=== PATIENT | female | born 1985 | race Caucasian/White ===

== ENCOUNTER → 2019-12-31 17:28 | Outpatient (CLI) | payer OTHER, SELFPAY ==
[2019-12-31 21:48] LABS: Amphetamine/Metha Screen,Urine Negative ng/ml (<1000)
[2019-12-31 21:49] LABS: Barbiturates Screen,Urine Negative ng/ml (<200)
[2019-12-31 21:51] LABS: Benzodiazepines Screen,Urine Negative ng/ml (<200); Cannabinoid Screen,Urine Negative ng/ml (<50)
[2019-12-31 21:52] LABS: Cocaine Screen,Urine Negative ng/ml (<300)
[2019-12-31 21:53] LABS: Methadone Screen,Urine Negative ng/ml (<300); Opiate Screen,Urine Negative ng/ml (<300)
[2019-12-31 21:54] LABS: Phencyclidine Screen,Urine Negative ng/ml (<25)
== END ==
PROVIDERS: Visit Provider Physician Assistant
DX: Z79.899 Other long term (current) drug therapy (principal)
CPT/HCPCS: 80305

== ENCOUNTER → 2020-09-01 07:54 | Outpatient (CLI) | payer OTHER, SELFPAY ==
--- NOTE | 2020-09-01 07:55 | MR_ITS ---
PROCEDURE: MR CERVICAL SPINE WO CON CLINICAL INDICATION: neck pain Pt c/o neck pain going down rt arm with numbness and tingling to rt fingers. Pt states hx of cervical surgery in 2012 she had a fuson and in 2014 she had a disc replacement. COMPARISON: CT CSWO CT CERVICAL SPINE W/O CONT from 07/30/2016 TECHNIQUE: Standard multiplanar multiecho sequences are performed without contrast. 3-D MIP and myelographic images are also rendered and reviewed FINDINGS: There is normal alignment. The craniocervical junction has an unremarkable appearance. C2-C3: Unremarkable. C3-C4: There is minimal prominence of the posterior longitudinal ligament with minimal central disc osteophyte complex without impingement. C4-C5: Degenerative disc disease with bulging disc. There is canal stenosis at this level at 9 mm and ridging of the posterior endplates and minimal flattening of the cord anteriorly.. There is mild bilateral lateral recess and foraminal narrowing. Type 1 endplate changes inferior endplate of C4. C5-C6 and C6-C7: Prior anterior cervical disc fusion with significant artifact especially on the axial images. There is narrowing of the canal at C6-C7 without impingement or flattening. C7-T1: Unremarkable. IMPRESSION: 1. Postsurgical changes C5-C6 and C6-C7 with canal stenosis at C6. 2. Degenerative disc disease C4-C5 with canal stenosis with mild ridging of the posterior endplates and minimal bulging disc with canal stenosis with minimal flattening of the cord anteriorly 3. No extruded herniated disc evident. 4. Minimal prominence posterior longitudinal ligament with minimal central disc osteophyte complex at C3-C4 without impingement Dictated by: Lobito Jacobs MD 09/02/2020 10:12 Lobito Jacobs MD in [place] 09/02/2020 10:12
== END ==
PROVIDERS: PCP Emergency Medicine; Visit Provider Emergency Medicine
DX: M54.2 Cervicalgia (principal)
CPT/HCPCS: 72141; 76376

== ENCOUNTER → 2021-04-25 06:00 | Outpatient (CLI) | payer OTHER, SELFPAY ==
[2021-04-26 09:38] LABS: Amphetamine/Metha Screen,Urine Negative ng/ml (<1000); Barbiturates Screen,Urine Negative ng/ml (<200)
[2021-04-26 09:39] LABS: Benzodiazepines Screen,Urine Negative ng/ml (<200); Cannabinoid Screen,Urine Negative ng/ml (<50)
[2021-04-26 09:40] LABS: Cocaine Screen,Urine Negative ng/ml (<300)
[2021-04-26 09:41] LABS: Methadone Screen,Urine Negative ng/ml (<300); Opiate Screen,Urine Negative ng/ml (<300)
[2021-04-26 09:42] LABS: Phencyclidine Screen,Urine Negative ng/ml (<25)
== END ==
PROVIDERS: Visit Provider Emergency Medicine
DX: Z79.899 Other long term (current) drug therapy (principal)
CPT/HCPCS: 80305

== ENCOUNTER → 2021-08-09 12:53 | Outpatient (CLI) | payer OTHER, SELFPAY ==
[2021-08-09 14:11] LABS: Barbiturates Screen,Urine Negative ng/ml (<200); Benzodiazepines Screen,Urine Negative ng/ml (<200)
[2021-08-09 14:12] LABS: Amphetamine/Metha Screen,Urine Negative ng/ml (<1000)
[2021-08-09 14:13] LABS: Cannabinoid Screen,Urine Negative ng/ml (<50); Methadone Screen,Urine Negative ng/ml (<300)
[2021-08-09 14:14] LABS: Cocaine Screen,Urine Negative ng/ml (<300)
[2021-08-09 14:15] LABS: Opiate Screen,Urine Negative ng/ml (<300); Phencyclidine Screen,Urine Negative ng/ml (<25)
== END ==
PROVIDERS: Visit Provider Emergency Medicine
DX: F41.9 Anxiety disorder, unspecified (principal); M54.9 Dorsalgia, unspecified
CPT/HCPCS: 80305

== ENCOUNTER → 2021-09-20 14:40 | Outpatient (CLI) | payer OTHER, SELFPAY ==
--- NOTE | 2021-09-20 14:40 | MR_ITS ---
PROCEDURE: MR LUMBAR SPINE WO CON CLINICAL INDICATION: back pain COMPARISON: No exams were available for comparison TECHNIQUE: Standard multiplanar multiecho sequences are performed without contrast. 3-D MIP and myelographic images are also rendered and reviewed FINDINGS: Normal alignment. No acute fracture or dislocation. No abnormal bone marrow signal intensity. No extruded herniated disc. Mild facet hypertrophic change at L4-5 with mild bilateral lateral recess and foraminal narrowing. Mild facet hypertrophic change L5-S1 with mild bilateral foraminal narrowing. The spinal cord ends at the L2 level. IMPRESSION: 1. No acute fracture. 2. No extruded herniated disc. 3. Mild facet and ligamentum hypertrophic change at L4-5 with mild bilateral lateral recess and foraminal narrowing and mild facet hypertrophic changes at L5-S1 with mild bilateral foraminal narrowing. Dictated by: Lobito Jacobs MD 09/20/2021 19:55 Lobito Jacobs MD in [place] 09/20/2021 19:55
== END ==
PROVIDERS: PCP Emergency Medicine; Visit Provider Emergency Medicine
DX: M54.50 Low back pain, unspecified (principal)
CPT/HCPCS: 72148; 76376

== ENCOUNTER → 2021-10-05 13:58 | Outpatient (CLI) | payer OTHER, SELFPAY ==
[2021-10-05 15:25] LABS: Amphetamine/Metha Screen,Urine Negative ng/ml (<1000)
[2021-10-05 15:26] LABS: Barbiturates Screen,Urine Negative ng/ml (<200); Benzodiazepines Screen,Urine Positive ng/ml (<200)
[2021-10-05 15:27] LABS: Cannabinoid Screen,Urine Negative ng/ml (<50)
[2021-10-05 15:28] LABS: Cocaine Screen,Urine Negative ng/ml (<300); Methadone Screen,Urine Negative ng/ml (<300)
[2021-10-05 15:29] LABS: Opiate Screen,Urine Positive ng/ml (<300); Phencyclidine Screen,Urine Negative ng/ml (<25)
== END ==
PROVIDERS: Visit Provider Emergency Medicine
DX: M54.9 Dorsalgia, unspecified (principal)
CPT/HCPCS: 80305

== ENCOUNTER → 2021-12-02 14:37 | Outpatient (CLI) | payer OTHER, SELFPAY ==
[2021-12-02 16:51] LABS: Amphetamine/Metha Screen,Urine Negative ng/ml (<1000); Barbiturates Screen,Urine Negative ng/ml (<200)
[2021-12-02 16:53] LABS: Benzodiazepines Screen,Urine Positive ng/ml (<200); Cannabinoid Screen,Urine Negative ng/ml (<50)
[2021-12-02 16:54] LABS: Cocaine Screen,Urine Negative ng/ml (<300)
[2021-12-02 16:55] LABS: Methadone Screen,Urine Negative ng/ml (<300); Opiate Screen,Urine Positive ng/ml (<300)
[2021-12-02 16:56] LABS: Phencyclidine Screen,Urine Negative ng/ml (<25)
== END ==
PROVIDERS: Visit Provider Emergency Medicine
DX: Z79.899 Other long term (current) drug therapy (principal)
CPT/HCPCS: 80305

== ENCOUNTER → 2022-01-27 15:08 | Outpatient (CLI) | payer OTHER, SELFPAY ==
[2022-01-27 15:43] LABS: Amphetamine/Metha Screen,Urine Negative ng/ml (<1000)
[2022-01-27 15:44] LABS: Barbiturates Screen,Urine Negative ng/ml (<200); Benzodiazepines Screen,Urine Positive ng/ml (<200)
[2022-01-27 15:45] LABS: Cannabinoid Screen,Urine Negative ng/ml (<50)
[2022-01-27 15:46] LABS: Cocaine Screen,Urine Negative ng/ml (<300)
[2022-01-27 15:47] LABS: Methadone Screen,Urine Negative ng/ml (<300); Opiate Screen,Urine Positive ng/ml (<300)
[2022-01-27 15:51] LABS: Phencyclidine Screen,Urine Negative ng/ml (<25)
== END ==
PROVIDERS: Visit Provider Emergency Medicine
DX: Z79.899 Other long term (current) drug therapy (principal)
CPT/HCPCS: 80305

== ENCOUNTER → 2022-04-07 16:03 | Outpatient (CLI) | payer OTHER, SELFPAY ==
[2022-04-07 13:29] LABS: Amphetamine/Metha Screen,Urine Negative ng/ml (<1000); Barbiturates Screen,Urine Negative ng/ml (<200)
[2022-04-07 13:30] LABS: Benzodiazepines Screen,Urine Positive ng/ml (<200)
[2022-04-07 13:31] LABS: Cannabinoid Screen,Urine Negative ng/ml (<50); Cocaine Screen,Urine Negative ng/ml (<300)
[2022-04-07 13:32] LABS: Methadone Screen,Urine Negative ng/ml (<300); Opiate Screen,Urine Positive ng/ml (<300)
[2022-04-07 13:33] LABS: Phencyclidine Screen,Urine Negative ng/ml (<25)
== END ==
PROVIDERS: Visit Provider Emergency Medicine
DX: G89.29 Other chronic pain (principal)
CPT/HCPCS: 80305

== ENCOUNTER → 2022-08-04 14:23 | Outpatient (CLI) | payer OTHER, SELFPAY ==
[2022-08-04 15:26] LABS: Amphetamine/Metha Screen,Urine Negative ng/ml (<1000)
[2022-08-04 15:27] LABS: Barbiturates Screen,Urine Negative ng/ml (<200)
[2022-08-04 15:28] LABS: Benzodiazepines Screen,Urine Positive ng/ml (<200); Cannabinoid Screen,Urine Negative ng/ml (<50)
[2022-08-04 15:30] LABS: Cocaine Screen,Urine Negative ng/ml (<300); Methadone Screen,Urine Negative ng/ml (<300)
[2022-08-04 15:31] LABS: Opiate Screen,Urine Positive ng/ml (<300)
[2022-08-04 15:32] LABS: Phencyclidine Screen,Urine Negative ng/ml (<25)
== END ==
PROVIDERS: PCP Emergency Medicine; Visit Provider Emergency Medicine
DX: Z79.899 Other long term (current) drug therapy (principal)
CPT/HCPCS: 80305

== ENCOUNTER → 2022-10-02 10:40 | Outpatient (CLI) | payer OTHER, SELFPAY ==
[2022-10-02 19:37] LABS: Amphetamine/Metha Screen,Urine Negative ng/ml (<1000); Barbiturates Screen,Urine Negative ng/ml (<200)
[2022-10-02 19:38] LABS: Benzodiazepines Screen,Urine Positive ng/ml (<200)
[2022-10-02 19:39] LABS: Cannabinoid Screen,Urine Negative ng/ml (<50); Cocaine Screen,Urine Negative ng/ml (<300)
[2022-10-02 19:40] LABS: Methadone Screen,Urine Negative ng/ml (<300); Opiate Screen,Urine Positive ng/ml (<300)
[2022-10-02 19:41] LABS: Phencyclidine Screen,Urine Negative ng/ml (<25)
== END ==
PROVIDERS: PCP Emergency Medicine; Visit Provider Emergency Medicine
DX: Z79.899 Other long term (current) drug therapy (principal)
CPT/HCPCS: 80305

== ENCOUNTER 2022-10-10 18:50 | Emergency (ER) | payer OTHER, SELFPAY ==
--- NOTE | 2022-10-10 19:13 | ECG_ITS ---
APPROVED REPORT Exam: Resting ECG HR:125 bpm ECG Measurements Heart Rate 125 AXES [place] 104 P 80 QRSd 65 QRS 88 QT 336 T 16 QTc 410 Conclusion SINUS TACHYCARDIA WITH SHORT [place] INTERVAL NONSPECIFIC ST & T-WAVE ABNORMALITY ABNORMAL RHYTHM ECG UNCONFIRMED REPORT Electronically signed by : Terrell Beltran MD 10/11/2022 13:14:35
[2022-10-10 19:25] LABS: Coronavirus 19, PCR Not Detected (NotDetected); Influenza A, PCR Not Detected (NotDetected); Influenza B, PCR Not Detected (NotDetected)
[2022-10-10 19:28] LABS: Basophils # 0.1 K/mm3 (0-0.2); Basophils % 1.2 % (0.1-2.0); Eosinophils # 0.1 K/mm3 (0.0-0.4); Eosinophils % 0.9 % (0.1-12.0); Hematocrit 51.4 % (37.0-47.0); Hemoglobin 16.9 g/dL (12.2-16.2); Lymphocytes # 1.3 K/mm3 (0.7-4.5); Lymphocytes % 12.7 % (10-50); Mean Corpuscular Volume 97.2 fl (81-99); Mean Platelet Volume 8.6 fl (7.4-10.4); Monocytes # 0.7 K/mm3 (0.1-1.0); Monocytes % 6.1 % (1.7-9.3); Neutrophils # 8.4 K/mm3 (1.8-7.8); Neutrophils % 79.2 % (37.0-80.0); Platelet Count 218 K/mm3 (142-424); Red Blood Count 5.29 M/mm3 (4.20-5.40); Red Cell Distribution Width 13.5 % (11.5-17.5); White Blood Count 10.6 K/mm3 (4.8-10.8)
[2022-10-10 19:33] LABS: Chloride 104 mmol/L (98-107); Potassium 3.5 mmoL/L (3.5-5.1); Sodium 141 mmol/L (136-145)
[2022-10-10 19:35] LABS: Alanine Aminotransferase 35 U/L (12-78); Alkaline Phosphatase 68 U/L (38-126); Aspartate Amino Transferase 38 U/L (14-36); Bilirubin,Total 0.3 mg/dl (0.2-1.3); Blood Urea Nitrogen 16 mg/dl (7-17); Estimated Glomerular Filt Rate 70 ml/min (>60); GFR (African American) 84 ML/MIN (>60)
[2022-10-10 19:36] LABS: Albumin Level 5.2 g/dl (3.5-5.0); Albumin/Globulin Ratio 1.6 (1.1-1.8); Anion Gap 23.5 mEq/L (5-15); Calcium 10.3 mg/dl (8.4-10.2); Carbon Dioxide 17 mmol/L (22.0-30.0); Globulin 3.3 g/dL (1.3-3.2); Glucose 157 mg/dl (74-100); Lipase 20 U/L (23-300); Total Protein,Serum 8.5 g/dl (6.3-8.2)
[2022-10-10 19:42] LABS: HCG Qualitative, Serum Negative (Negative)
--- NOTE | 2022-10-10 19:57 | HMH.EDGENADL ---
Discharge Plan Disposition Patient Disposition: Left Against Medical Advice Condition: Fair Chief Complaint: Nausea/Vomiting/Diarrhea Prescriptions Prescriptions: No Action lidocaine 5 % adhesive patch,medicated 1 patch TOPICAL DAILY Qty: 30 1RF Rx Instructions: leave on most painful area for up to 12 hrs diclofenac sodium 1 % gel 2 g TOPICAL QID Qty: 100 0RF Rx Instructions: apply to single elbow, wrist or hand; for hand includes palm/fingers/back of hand vilazodone [Viibryd] 10 mg tablet 10 mg PO DAILY Qty: 30 1RF Rx Instructions: must administer with a meal/food alprazolam 0.5 mg tablet 0.5 mg PO QID PRN (Reason: anxiety) Qty: 120 1RF Hold Instructions: Doctor's Order gabapentin 600 mg tablet 600 mg PO TID Qty: 90 1RF hydrocodone-acetaminophen 10-325 mg tablet 1 tab PO TID Qty: 90 0RF Referrals Follow up/Referrals: Moses Rico MD [Primary Care Provider] - See instructions Clinical Impressions Clinical Impression: Abdominal pain, Nausea, vomiting and diarrhea Instructions Patient Instructions: DI for Nausea -- Adult Discharge ED Provider: Lina Flores General Adult HPI General Chief complaint: Nausea/Vomiting/Diarrhea Stated complaint: back pain, SOA, VA Time Seen by Provider: 10/10/22 19:21 History of Present Illness HPI narrative: 37-year-old female presenting to the emergency department with abdominal pain, nausea, vomiting, diarrhea, cough, chills. Symptoms started 2 to 3 days ago. Described as cramping upper abdominal pain. When she tries to eat, pain is worse. She has had body aches, fevers, chills, generalized malaise. She has a cough and congestion. Occasional burning pain in her chest when she coughs. No chest pain at rest. Told triage nurse that the pain radiated toward her back. Denies this to me. No numbness, weakness, tingling in her legs. Nothing that this is ever happened before. Related Data Previous Rx's Medication Instructions Recorded diclofenac sodium 1 % topical gel 2 g topical QID #100 grams 08/09/21 lidocaine 5 % topical patch 1 patch topical DAILY #30 ea 08/09/21 alprazolam 0.5 mg tablet 0.5 mg PO QID PRN anxiety #120 tabs 10/02/22 gabapentin 600 mg tablet 600 mg PO TID #90 tabs 10/02/22 hydrocodone 10 mg-acetaminophen 1 tab PO TID #90 tabs 10/02/22 325 mg tablet vilazodone 10 mg tablet (Viibryd) 10 mg PO DAILY #30 tabs 10/02/22 Allergies Allergy/AdvReac Type Severity Reaction Status Date / Time No Known Allergies Allergy Verified 10/02/22 10:41 [facility] Medical History Cervical neuropathy Cervical neuropathy Cervical spondylosis Low back pain Social History Smoking Status: Current every day smoker tobacco type: cigarettes packs per day: 1 alcohol intake: never substance use type: former substance user and heroin current occupational status: unemployed Travel in the last 8 weeks: None ROS Obtained: Yes All systems reviewed & no additional complaints except as documented Constitutional Constitutional: Reports anorexia, Reports body ache and Denies fever(s) ENT Ears, Nose, Mouth, and Throat: Denies dizziness, Reports nasal congestion and Denies sore throat Cardiovascular Cardiovascular: Reports chest pain (burning with cough) and Denies palpitations Respiratory Respiratory: Reports chest congestion, Reports cough and Denies wheezing Gastrointestinal Gastrointestingal: Reports abdominal pain, diarrhea, nausea and vomiting Genitourinary Female Genitourinary: Denies dysuria and Denies hematuria Musculoskeletal Musculoskeletal: Denies back pain, Denies muscle cramps, Reports myalgias, Denies numbness and Denies tingling Integumentary/Breasts Skin/Breast: Denies redness and Denies rash Neurologic Neurologic: Denies dizziness, Denies numbness and Denies tingling Endocrine Endocrine
[2022-10-10 19:58] VITALS: BP 145/68; PULSE 68; RESP 18; TEMP 36.8; O2SAT 98; BMI 27.3
[2022-10-10 20:02] VITALS: BP 148/68; PULSE 72; RESP 16; TEMP 36.6; O2SAT 99
--- NOTE | 2022-10-10 20:04 | PC.NURSE ---
Patient left hospital ama. Patient was screaming in her room about how she has not had anything done to help her. We advised patient that we were waiting for lab results to report and her flu test to come back. Patient states that she was only here for pain and we haven't taken care of her pain at all.
== END 2022-10-10 20:04 | disposition left against medical advice (07) ==
PROVIDERS: Emergency Provider Emergency Medicine; PCP Emergency Medicine
DX: M54.50 Low back pain, unspecified (principal); R10.10 Upper abdominal pain, unspecified; R11.2 Nausea with vomiting, unspecified; R19.7 Diarrhea, unspecified; R53.81 Other malaise; Z20.822 Contact with and (suspected) exposure to COVID-19; M79.10 Myalgia, unspecified site; R50.9 Fever, unspecified; R06.02 Shortness of breath; R05.9 Cough, unspecified; M47.892 Other spondylosis, cervical region; F41.9 Anxiety disorder, unspecified; F17.210 Nicotine dependence, cigarettes, uncomplicated
CPT/HCPCS: 80053; 83690; 84703; 85025; 93005; 99284; C9803; U0003; U0005

== ENCOUNTER → 2022-11-29 10:00 | Outpatient (CLI) | payer OTHER, SELFPAY ==
[2022-11-29 15:43] LABS: Amphetamine/Metha Screen,Urine Negative ng/ml (<1000)
[2022-11-29 15:44] LABS: Benzodiazepines Screen,Urine Positive ng/ml (<200); Cannabinoid Screen,Urine Negative ng/ml (<50)
[2022-11-29 15:45] LABS: Barbiturates Screen,Urine Negative ng/ml (<200)
[2022-11-29 15:46] LABS: Cocaine Screen,Urine Negative ng/ml (<300); Methadone Screen,Urine Negative ng/ml (<300)
[2022-11-29 15:47] LABS: Opiate Screen,Urine Positive ng/ml (<300)
[2022-11-29 16:23] LABS: Phencyclidine Screen,Urine Negative ng/ml (<25)
== END ==
PROVIDERS: PCP Emergency Medicine; Visit Provider Emergency Medicine
DX: Z79.899 Other long term (current) drug therapy (principal)
CPT/HCPCS: 80305

== ENCOUNTER 2023-03-03 22:07 | Emergency (ER) | payer OTHER, SELFPAY ==
[2023-03-03 22:08] VITALS: BP 117/96; PULSE 95; RESP 16; TEMP 36.4; O2SAT 98; BMI 27.3
[2023-03-03 22:28] LABS: Basophils # 0.1 K/mm3 (0-0.2); Basophils % 0.5 % (0.1-2.0); Eosinophils # 0.4 K/mm3 (0.0-0.4); Eosinophils % 3.6 % (0.1-12.0); Hematocrit 39.5 % (37.0-47.0); Hemoglobin 12.9 g/dL (12.2-16.2); Lymphocytes # 5.8 K/mm3 (0.7-4.5); Lymphocytes % 54.4 % (10-50); Mean Corpuscular HGB Conc 32.6 g/dL (31.8-35.4); Mean Corpuscular Hemoglobin 31.6 pg (27.0-31.2); Mean Corpuscular Volume 96.8 fl (81-99); Mean Platelet Volume 7.8 fl (7.4-10.4); Monocytes # 0.6 K/mm3 (0.1-1.0); Monocytes % 5.1 % (1.7-9.3); Neutrophils # 3.9 K/mm3 (1.8-7.8); Neutrophils % 36.3 % (37.0-80.0); Platelet Count 276 K/mm3 (142-424); Red Blood Count 4.08 M/mm3 (4.20-5.40); Red Cell Distribution Width 12.9 % (11.5-17.5); White Blood Count 10.7 K/mm3 (4.8-10.8)
[2023-03-03 22:29] LABS: MANUAL DIFFERENTIAL MANUAL DIFFERENTIAL (MANUAL DIFF)
[2023-03-03 22:30] LABS: Chloride 105 mmol/L (98-107); Potassium 3.5 mmoL/L (3.5-5.1); Sodium 137 mmol/L (136-145)
[2023-03-03 22:32] LABS: Alanine Aminotransferase 60 U/L (12-78); Alkaline Phosphatase 62 U/L (38-126); Aspartate Amino Transferase 105 U/L (14-36); Bilirubin,Total 0.4 mg/dl (0.2-1.3); Blood Urea Nitrogen 14 mg/dl (7-17); Creatinine Clearance Estimated 78 mL/min (50-200); Estimated Glomerular Filt Rate 62 ml/min (>60); GFR (African American) 75 ML/MIN (>60)
[2023-03-03 22:33] LABS: Albumin/Globulin Ratio 1.7 (1.1-1.8); Anion Gap 10.5 mEq/L (5-15); Calcium 8.2 mg/dl (8.4-10.2); Carbon Dioxide 25 mmol/L (22.0-30.0); Globulin 2.3 g/dL (1.3-3.2); Glucose 172 mg/dl (74-100); Salicylate < 1.0 mg/dL (2.0-20.0); Total Protein,Serum 6.3 g/dl (6.3-8.2)
[2023-03-03 22:34] LABS: Acetaminophen < 10 ug/ml (10-30)
[2023-03-03 22:36] LABS: Eosinophils % 4 % (0-3); Lymphocytes % 49 % (10-50); Monocytes % 4 % (2-9); Neutrophils % 43 % (42-76); Total Cells Counted 100
[2023-03-03 22:37] LABS: Platelet Estimate Normal; RBC Morphology Normal
[2023-03-03 22:44] LABS: Barbiturates Screen,Urine Negative ng/ml (<200); Benzodiazepines Screen,Urine Positive ng/ml (<200)
[2023-03-03 22:45] LABS: Amphetamine/Metha Screen,Urine Negative ng/ml (<1000); Cannabinoid Screen,Urine Positive ng/ml (<50)
[2023-03-03 22:46] LABS: Cocaine Screen,Urine Negative ng/ml (<300)
[2023-03-03 22:47] LABS: Methadone Screen,Urine Negative ng/ml (<300); Opiate Screen,Urine Positive ng/ml (<300)
[2023-03-03 22:48] LABS: Phencyclidine Screen,Urine Negative ng/ml (<25)
--- NOTE | 2023-03-03 23:14 | HMH.EDOD ---
Discharge Plan Disposition Patient Disposition: Home, Self-Care Chief Complaint: Overdose Prescriptions Prescriptions: No Action alprazolam 0.5 mg tablet 0.5 mg PO QID PRN (Reason: anxiety) Qty: 120 1RF Hold Instructions: Doctor's Order gabapentin 600 mg tablet 600 mg PO TID hydrocodone-acetaminophen 10-325 mg tablet 1 tab PO TID vilazodone [Viibryd] 10 mg tablet 10 mg PO DAILY Rx Instructions: must administer with a meal/food Referrals Follow up/Referrals: Moses Rico MD [Primary Care Provider] - See instructions Clinical Impressions Clinical Impression: Poisoning by opiate or related narcotic Instructions Patient Instructions: Dos and Don'ts for Prescription Medications Discharge ED Provider: Trisha (ED)[facility] Overdose HPI General Chief Complaint: Overdose Stated Complaint: overdose Time Seen by Provider: 03/03/23 23:14 Mode of Arrival: EMS Source of Information: Patient, EMS and Medical Record Limitations: No Limitations Description of Symptoms (Recalled from ER Triage Doc. by RN): PT arrived via EMS. Per EMS patient was found unresponsive with snoring respirations. Patient was given 4mg of narcan and sternal rubbed. At that time patient woke up and was able to respond appropriately. Patients vital signs were within normal range en route. Pt states did not take any illicit drugs. States that she took her prescription medication as prescribed by her pcp like she typically does. States that she just woke up to EMS. History of Present Illness HPI Narrative: ems reported pt sedated and pt responded to narcan - pt denied any meds other than perscribed MD complaint: accidental overdose Onset (ago): hour(s) Timing confirmed by: spouse Context: Accidental Overdose: uncertain what happened Treatments Prior to Arrival: narcan Related Data Home Medications Medication Instructions Recorded Confirmed gabapentin 600 mg tablet 600 mg PO TID nerve pain 03/03/23 03/03/23 hydrocodone 10 mg-acetaminophen 1 tab PO TID Pain 03/03/23 03/03/23 325 mg tablet vilazodone 10 mg tablet (Viibryd) 10 mg PO DAILY antidepressant 03/03/23 03/03/23 Previous Rx's Medication Instructions Recorded alprazolam 0.5 mg tablet 0.5 mg PO QID PRN anxiety #120 tabs 01/23/23 Allergies Allergy/AdvReac Type Severity Reaction Status Date / Time No Known Allergies Allergy Verified 01/23/23 11:04 [facility] Disclaimer: The information contained in this section may have been updated after the patient was seen, as this information can be updated by other users. Medical History Cervical neuropathy Cervical neuropathy Cervical spondylosis Low back pain Social History Smoking Status: Current every day smoker tobacco type: cigarettes packs per day: 1 alcohol intake: never substance use type: former substance user and heroin current occupational status: unemployed Travel in the last 8 weeks: None ROS Obtained: Yes All systems reviewed & no additional complaints except as documented Physical Exam General General appearance: alert Head Head exam: normocephalic Eye Eye exam: Present PERRL and EOMI ENT ENT exam: Present mucous membranes moist Neck Neck exam: Present trachea midline Respiratory Respiratory exam: Present normal lung sounds bilaterally; Absent respiratory distress Cardiovascular Cardiovascular exam: Present regular rate Abdominal Exam Abdominal exam: Present soft Extremities Exam Extremities exam: Present full ROM Neurological Exam Neurological exam: Present alert, oriented X3 and CN II-XII intact; Absent motor sensory deficit Psychiatric Psychiatric exam: Present normal affect Skin Skin exam: Absent rash Medical Decision Making Medical Records Medical records reviewed: Yes I reviewed the patient's medical records. Bebo Griggs Pt receiving
[2023-03-03 23:33] VITALS: BP 123/79; PULSE 87; RESP 17; TEMP 36.9; O2SAT 98
== END 2023-03-03 23:37 | disposition home or self-care (01) ==
PROVIDERS: Emergency Provider Emergency Medicine; PCP Emergency Medicine
DX: T40.2X1A Poisoning by other opioids, accidental (unintentional), initial encounter (principal); F17.210 Nicotine dependence, cigarettes, uncomplicated
CPT/HCPCS: 80053; 80305; 80329; 85007; 85025; 99284; 99285

== ENCOUNTER → 2023-04-11 14:44 | Outpatient (CLI) | payer OTHER, SELFPAY ==
[2023-04-11 20:01] LABS: Amphetamine/Metha Screen,Urine Negative ng/ml (<1000)
[2023-04-11 20:02] LABS: Barbiturates Screen,Urine Negative ng/ml (<200); Benzodiazepines Screen,Urine Negative ng/ml (<200)
[2023-04-11 20:03] LABS: Cannabinoid Screen,Urine Positive ng/ml (<50)
[2023-04-11 20:05] LABS: Opiate Screen,Urine Negative ng/ml (<300)
[2023-04-11 20:06] LABS: Cocaine Screen,Urine Negative ng/ml (<300); Methadone Screen,Urine Negative ng/ml (<300)
[2023-04-11 20:07] LABS: Phencyclidine Screen,Urine Negative ng/ml (<25)
== END ==
PROVIDERS: PCP Emergency Medicine; Visit Provider Emergency Medicine
DX: N39.0 Urinary tract infection, site not specified (principal); Z79.899 Other long term (current) drug therapy
CPT/HCPCS: 80305; 87086

== ENCOUNTER → 2023-06-05 12:57 | Outpatient (CLI) | payer OTHER, SELFPAY ==
[2023-06-05 17:59] LABS: Barbiturates Screen,Urine Negative ng/ml (<200)
[2023-06-05 18:00] LABS: Amphetamine/Metha Screen,Urine Negative ng/ml (<1000)
[2023-06-05 18:01] LABS: Benzodiazepines Screen,Urine Positive ng/ml (<200)
[2023-06-05 18:02] LABS: Cannabinoid Screen,Urine Positive ng/ml (<50); Cocaine Screen,Urine Negative ng/ml (<300)
[2023-06-05 18:04] LABS: Methadone Screen,Urine Negative ng/ml (<300); Opiate Screen,Urine Positive ng/ml (<300)
[2023-06-05 18:05] LABS: Phencyclidine Screen,Urine Negative ng/ml (<25)
== END ==
PROVIDERS: PCP Emergency Medicine; Visit Provider Emergency Medicine
DX: Z79.899 Other long term (current) drug therapy (principal)
CPT/HCPCS: 80305

== ENCOUNTER → 2023-08-31 19:12 | Outpatient (CLI) | payer OTHER, SELFPAY ==
[2023-08-31 20:01] LABS: Amphetamine/Metha Screen,Urine Negative ng/ml (<1000)
[2023-08-31 20:02] LABS: Barbiturates Screen,Urine Negative ng/ml (<200)
[2023-08-31 20:03] LABS: Benzodiazepines Screen,Urine Positive ng/ml (<200); Cannabinoid Screen,Urine Positive ng/ml (<50)
[2023-08-31 20:04] LABS: Cocaine Screen,Urine Negative ng/ml (<300)
[2023-08-31 20:05] LABS: Methadone Screen,Urine Negative ng/ml (<300); Opiate Screen,Urine Positive ng/ml (<300)
[2023-08-31 20:06] LABS: Phencyclidine Screen,Urine Negative ng/ml (<25)
== END ==
PROVIDERS: PCP Emergency Medicine; Visit Provider Emergency Medicine
DX: F41.9 Anxiety disorder, unspecified (principal); Z79.899 Other long term (current) drug therapy
CPT/HCPCS: 80305

== ENCOUNTER → 2023-10-29 12:05 | Outpatient (CLI) | payer OTHER, SELFPAY ==
[2023-10-29 14:04] LABS: Barbiturates Screen,Urine Negative ng/ml (<200)
[2023-10-29 14:05] LABS: Amphetamine/Metha Screen,Urine Negative ng/ml (<1000); Benzodiazepines Screen,Urine Positive ng/ml (<200)
[2023-10-29 14:06] LABS: Cocaine Screen,Urine Negative ng/ml (<300)
[2023-10-29 14:07] LABS: Cannabinoid Screen,Urine Positive ng/ml (<50); Methadone Screen,Urine Negative ng/ml (<300)
[2023-10-29 14:10] LABS: Opiate Screen,Urine Positive ng/ml (<300)
[2023-10-29 14:11] LABS: Phencyclidine Screen,Urine Negative ng/ml (<25)
== END ==
PROVIDERS: PCP Internal Medicine; Visit Provider Internal Medicine
DX: Z79.899 Other long term (current) drug therapy (principal)
CPT/HCPCS: 80305

== ENCOUNTER → 2023-11-28 09:26 | Outpatient (POV) | payer OTHER, SELFPAY ==
[2023-11-28 10:20] VITALS: BP 135/86; PULSE 111; RESP 18; O2SAT 98; BMI 26.0
--- NOTE | 2023-11-28 10:57 | EXP.PAIN.OV ---
HPI Data of Consult Patient: new to practice Consult date: 11/28/23 Requesting Physician: Dori Bhat APRN Primary Care Provider: Joon Gomez DO Consult Narrative Reason for consult: Neck pain, bilateral arm pain/hand numbness tingling History of present illness: Ms. Arce is a 38 year old female who presents today as a new patient. She is a referral from Joon Dickens's office. Today she rates her pain a 5 out of 10. Patient states her pain is all in her neck and does states she has pain going down her arms into her hands. Patient states initially it did start just on the right shoulder and the right hand with some numbness and tingling however it has started radiating down the left as well. Patient states this has been going on for more than 15 years. Patient states she had surgeries on her neck back in 2012 that it did initially help however she had returned to work at a later date and was lifting something when she felt a burning sensation and worsening pain. Patient states that then she ended up having another surgery in 2014 however her pain is continued to worsen. Patient describes this as a aching, throbbing sensation with numbness and tingling that does interfere with her ability perform activities of daily living such as cooking and cleaning. Patient denies any recent imaging in the last few years. She does state that the pain is interfering with her ability to sleep and that can even send stabbing sensations based off with certain positioning. Patient has tried [id number] medications such as Tylenol and ibuprofen along with heat and ice and topicals with no relief. Patient has had physical therapy in the past with no improvement but made her symptoms worse. Patient has continued to try at home exercising and stretching with minimal relief. Patient denies any previous injection history. She is prescribed gabapentin 600 mg 3 times a day and [place] 10 mg 3 times a day. Her Bebo has been reviewed and is appropriate. CC: Dori Bhat APRN [facility] Disclaimer: The information contained in this section may have been updated after the patient was seen, as this information can be updated by other users. Medical History Cervical neuropathy Cervical neuropathy Cervical spondylosis Low back pain Family History (Updated 11/28/23 @ 10:20 by Letty Adler RN) Other Unknown family medical history Social History (Updated 11/28/23 @ 10:21 by Letty Adler RN) Smoking Status: Current every day smoker tobacco type: cigarettes packs per day: 1 alcohol intake: never substance use type: former substance user and heroin current occupational status: unemployed Travel in the last 8 weeks: None Review of Systems Review of Systems Review of systems:: pertinent systems reviewed and negative unless documented below Review of systems (narrative): Review of Systems: General: No recent weight changes, no fever, no sleep disturbances Respiratory: No cough, no shortness of air, no recurring pulmonary infections Cardiovascular/peripheral vascular: No chest pain, no palpitations, no edema, no shortness of breath Gastrointestinal: No new onset incontinence, normal bowel movements reported Genitourinary: No new onset incontinence Musculoskeletal: Neck pain, bilateral arm pain, numbness and tingling hands Psychiatric: [Normal mood/affect] Neurological: [Denies weakness in extremities], [denies balance issues] Meds Home Medications and Allergies Home Medications Medication Instructions Recorded Confirmed Type vilazodone 10 mg tablet (Viibryd) 10 mg PO DAILY antidepressant 03/03/23 11/28/23 History alprazolam 0.5 mg tablet 0.5 mg PO QID anxiety 30 days #120 11/06/23 11/28/23 Rx tabs gabapentin 600 mg tablet 600 mg PO TID nerve pain #90 tabs 11/06/23 11/28/23 Rx hydrocodone 10 mg-acetaminophen 1 tab PO TID Pain #90 tabs 11/06/23 11/28/23 Rx 325 mg tablet New Prescriptions to Start Prescriptions: Allergies Allergy/AdvReac Type Severity Reaction Status Date / Time No Known Allergies Allergy Verified 10/29/23 10:45 Objective Vital signs: Pulse Resp BP Pulse Ox O2 Del Method 111 H 18 135/86 98 Room Air 11/28/23 10:20 11/28/23 10:20 11/28/23 10:20 11/28/23 10:20 11/28/23 10:20 Narrative: Physical Exam: General: Alert and oriented x3, no acute distress, pleasant and cooperative Lungs: Respirations even and unlabored, symmetrical chest expansion Eyes: PERRL Musculoskeletal: Flexion and extension of cervical [spine] somewhat guarded secondary to pain Neurological: Speech clear, no gross sensory deficit Additional findings Additional findings: PROCEDURE: MR CERVICAL SPINE WO CON CLINICAL INDICATION: neck pain Pt c/o neck pain going down rt arm with numbness and tingling to rt fingers. Pt states hx of cervical surgery in 2012 she had a fuson and in 2014 she had a disc replacement. COMPARISON: CT CSWO CT CERVICAL SPINE W/O CONT from 07/30/2016 TECHNIQUE: Standard multiplanar multiecho sequences are performed without contrast. 3-D MIP and myelographic images are also rendered and reviewed FINDINGS: There is normal alignment. The craniocervical junction has an unremarkable appearance. C2-C3: Unremarkable. C3-C4: There is minimal prominence of the posterior longitudinal ligament with minimal central disc osteophyte complex without impingement. C4-C5: Degenerative disc disease with bulging disc. There is canal stenosis at this level at 9 mm and ridging of the posterior endplates and minimal flattening of the cord anteriorly.. There is mild bilateral lateral recess and foraminal narrowing. Type 1 endplate changes inferior endplate of C4. C5-C6 and C6-C7: Prior anterior cervical disc fusion with significant artifact especially on the axial images. There is narrowing of the canal at C6-C7 without impingement or flattening. C7-T1: Unremarkable. IMPRESSION: 1. Postsurgical changes C5-C6 and C6-C7 with canal stenosis at C6. 2. Degenerative disc disease C4-C5 with canal stenosis with mild ridging of the posterior endplates and minimal bulging disc with canal stenosis with minimal flattening of the cord anteriorly 3. No extruded herniated disc evident. 4. Minimal prominence posterior longitudinal ligament with minimal central disc osteophyte complex at C3-C4 without impingement Dictated by: Lobito Jacobs MD 09/02/2020 10:12 Lobito Jacobs MD in [place] 09/02/2020 10:12 Assessment and Plan *Assessment and plan (1) Degenerative disc disease, cervical: Status: Acute Category: Medical Code(s): M50.30 - Other cervical disc degeneration, unspecified cervical region (2) Cervical spinal stenosis: Status: Acute Category: Medical Code(s): M48.02 - Spinal stenosis, cervical region (3) Cervical spondylosis: Status: Chronic Qualifiers: Spinal osteoarthritis complication: other spinal osteoarthritis Qualified Code(s): M47.892 - Other spondylosis, cervical region Category: Medical Code(s): M47.812 - Spondylosis without myelopathy or radiculopathy, cervical region (4) Status post cervical spinal fusion: Status: Acute Category: Surgical Code(s): Z98.1 - Arthrodesis status (5) Cervical radiculopathy: Status: Acute Category: Medical Code(s): M54.12 - Radiculopathy, cervical region Plan Patient is experiencing significant pain in her neck with radiating symptoms of numbness and tingling into her upper extremities. Patient had limited range of motion of her cervical spine during today's visit. I have discussed with the patient that she may benefit from a cervical epidural steroid injection. Risk and benefits were discussed with the patient and she would like to proceed forward with this plan of care. I will also order the patient a compounded cream and updated imaging of x-ray and MRI without contrast to follow. Patient has tried and failed conservative treatment such as oral medications, heat and ice, topicals, physical therapy, at home stretching exercise for longer than 6 weeks and previous cervical fusion. Patient will be scheduled for a ADEN C6-C7 under fluoroscopic guidance. Patient has been instructed to contact the clinic with any concerns before the next appointment. Dr. Sharma has reviewed this note and agrees with this plan of care. This note was dictated using voice recognition software and make contain errors or omissions.
== END ==
LOC: SC.PAIN 09:26
PROVIDERS: PCP Internal Medicine; Visit Provider Nurse Practitioner Family
DX: M48.02 Spinal stenosis, cervical region; M47.892 Other spondylosis, cervical region; Z98.1 Arthrodesis status; M50.123 Cervical disc disorder at C6-C7 level with radiculopathy
CPT/HCPCS: 99202; G0463

== ENCOUNTER 2023-12-04 20:48 | Outpatient (CLI) | payer OTHER, SELFPAY ==
[2023-12-04 22:25] LABS: Amphetamine/Metha Screen,Urine Negative ng/ml (<1000); Barbiturates Screen,Urine Negative ng/ml (<200)
[2023-12-04 22:26] LABS: Benzodiazepines Screen,Urine Positive ng/ml (<200); Cannabinoid Screen,Urine Negative ng/ml (<50)
[2023-12-04 22:27] LABS: Cocaine Screen,Urine Negative ng/ml (<300)
[2023-12-04 22:28] LABS: Methadone Screen,Urine Negative ng/ml (<300)
[2023-12-04 22:29] LABS: Opiate Screen,Urine Positive ng/ml (<300)
[2023-12-04 22:30] LABS: Phencyclidine Screen,Urine Negative ng/ml (<25)
[2023-12-09 13:03] LABS: Codeine Negative (Cutoff=100); Hydrocodone Positive (.); Hydromorphone Negative (Cutoff=100); Morphine Negative (Cutoff=100); Opiates Positive (.)
== END 2023-12-04 23:59 ==
LOC: LAB.DROPOF 20:49
PROVIDERS: PCP Internal Medicine; Visit Provider Internal Medicine
DX: Z79.899 Other long term (current) drug therapy (principal)
CPT/HCPCS: 80307; 80361; 80365; G0480

== ENCOUNTER 2023-12-10 10:43 | Outpatient (CLI) | payer OTHER, SELFPAY ==
--- NOTE | 2023-12-10 10:48 | XR_ITS ---
FINAL REPORT TECHNIQUE: 5 views CLINICAL HISTORY: Right sided neck pain that radiates down arm. Hx of sx in 2015 & 2018- fusion and disc replacement. COMPARISON: None FINDINGS: There is no fracture present. There is no malalignment. The patient is postoperative fusion at the C5-6 and C6-7 levels. There is moderate degenerative disc disease present at the C4-5 level. No significant bony foraminal narrowing is seen. IMPRESSION: Prior anterior fusion at the C5-6 and C6-7 levels. Moderate degenerative disc disease at the C4-5 level. Reviewed, Interpreted and Dictated by Charles Martell MD Transcribed by Kimmy Viera Authenticated and [facility]
== END 2023-12-10 23:59 ==
LOC: RAD 10:43
PROVIDERS: PCP Internal Medicine; Visit Provider Nurse Practitioner Family
DX: M54.2 Cervicalgia (principal)
CPT/HCPCS: 72050

== ENCOUNTER 2023-12-11 09:03 | Day surgery (SDC) | payer OTHER, SELFPAY ==
[2023-12-11 09:16] VITALS: BP 128/73; PULSE 119; RESP 18; TEMP 36.5; O2SAT 100; BMI 26.4
--- NOTE | 2023-12-11 09:43 | P.PCN_ITS ---
Procedure Date: 12/11/23 Time: 09:30 Anesthesiologist:: Gabriel Perea CRNA Complications:: None Pre-procedure Diagnosis:: Degenerative disc cervical spine multilevels. Cervical radiculopathy. Cervical postlaminectomy syndrome. Cervical spondylosis. Post-procedure Diagnosis:: Same. Indications for Procedure:: Patient is a very pleasant 38-year-old female comes our clinic today for cervical epidural steroid injection. Patient is status post 2 separate cervical anterior fusions C5-6, and C6-7. Patient reports posterior cervical neck pain as well as bilateral arm radicular symptoms. She rates her pain 8/10. Procedure Details:: Procedure:Cervical epidural steroid injection Informed consent was obtained and the risks and benefits of the procedure were explained to the patient. The patient was taken to the procedure room and nonin vasive monitors placed, including noninvasive blood pressure cuff and pulse oximeter. The neck was prepped using Chloraprep as a cleansing solution. The C7- T1 interspace was viewed using fluroscopy. The skin and subcutaneous tissues were anesthetized using lidocaine 1.5% and a 25-gauge needle. After this an 18- gauge Touhy epidural needle was placed into the C7-T1 interspace under fluroscopy guidance and advanced using loss of resistance to air until the epidural space was encountered. After confirmation of needle placement in the epidural space using contrast dye, a solution containing normal saline, 2 mL and Depo-Medrol 80 mg was incrementally injected into the cervical epidural space.~ The patient tolerated the procedure well with no complications. The patient was observed in the Pain Clinic and then discharged home neurologically intact. Plan and Disposition:: Patient was discharged without incident.
[2023-12-11 09:45] VITALS: BP 115/84; BP 130/76; PULSE 123; PULSE 97; RESP 16; RESP 18; O2SAT 100; O2SAT 98
[2023-12-11] MEDS: IOPAMIDOL-200 (41%);10ML VIAL 10 ML IV (09:45)
[2023-12-11 09:47] VITALS: BP 130/76; PULSE 123; RESP 18; O2SAT 98
== END 2023-12-11 09:45 | disposition home or self-care (01) ==
PROVIDERS: PCP Internal Medicine; Visit Provider Nurse Anesthetist, Certified Registered
DX: M50.13 Cervical disc disorder with radiculopathy, cervicothoracic region (principal); M96.1 Postlaminectomy syndrome, not elsewhere classified; M47.22 Other spondylosis with radiculopathy, cervical region
CPT/HCPCS: 62321; Q9966

== ENCOUNTER → 2023-12-28 10:35 | Outpatient (POV) | payer OTHER, SELFPAY ==
--- NOTE | 2023-12-28 11:09 | EXP.PAIN.SOA ---
[facility] Pain Management SOAP Note Subjective:: Patient is a pleasant 38-year-old female who presents today for follow-up of cervical epidural steroid injection C7-T1 on 12/11/2023. We are currently treating the patient for degenerative disc disease of cervical spine with cervical radiculopathy symptoms, cervical postlaminectomy syndrome, cervical spondylosis. Today she rates her pain a 5 out of 10. Patient denies any new trauma or injury. She does state that she did not notice any improvement following this injection. She states she still has been experiencing worsening pain into her left arm. She does state that she is scheduled for her cervical MRI on the of this month and that she does have a follow-up coming up with her primary care provider. Patient does state that she has been experiencing more spasms into her neck area. Patient states in the past she has been tried on muscle relaxers however she does not recall how she did with these. Patient is currently managed with gabapentin 600 mg 3 times a day and [place] 10 mg 3 times a day from her primary care provider. Her Bebo has been reviewed and is appropriate. Review of Systems: General: No recent weight changes, no fever, no sleep disturbances Respiratory: No cough, no shortness of air, no recurring pulmonary infections Cardiovascular/peripheral vascular: No chest pain, no palpitations, no edema, no shortness of breath Gastrointestinal: No new onset incontinence, normal bowel movements reported Genitourinary: No new onset incontinence Musculoskeletal: Neck pain Psychiatric: [Normal mood/affect] Neurological: [Denies weakness in extremities], [denies balance issues] Objective:: Physical Exam: General: Alert and oriented x3, no acute distress, pleasant and cooperative Lungs: Respirations even and unlabored, symmetrical chest expansion Eyes: PERRL Musculoskeletal: Flexion and extension of cervical [spine] somewhat guarded secondary to pain, [antalgic gait noted] Neurological: Speech clear, no gross sensory deficit Assessment:: Degenerative disc disease of cervical spine with cervical radiculopathy symptoms, cervical post spinal fusion, cervical spondylosis Plan:: I have discussed with the patient that I will send in baclofen 10 mg twice daily as needed and provide a 2-week supply of this medication. I have counseled the patient that we will follow-up in 2 weeks following her MRI findings for reevaluation of symptoms and plan of care. Patient has been instructed to contact the clinic with any concerns before the next appointment. Dr. Sharma has reviewed this note and agrees with this plan of care. This note was dictated using voice recognition software and make contain errors or omissions. [facility] Disclaimer: The information contained in this section may have been updated after the patient was seen, as this information can be updated by other users. Medical History Cervical neuropathy Cervical neuropathy EMG and nerve conduction studies does show an neuropathy. She has never had interventional pain procedures done we will send her to Dr. Sharma for that. Hopefully he can give her some relief and we can reduce her medications. The gabapentin and the hydrocodone are helping her and we will continue with those prescriptions for now. Cervical spondylosis Low back pain Patient is not really having any low back pain per se but she does have burning in the arches of the feet bilaterally. I am not sure what to make of this. Will review her chart and when she comes back in November consider what else to do here. Family History Other Unknown family medical history Social History Smoking Status: Current every day smoker tobacco type: cigarettes packs per day: 1 alcohol intake: never substance use type: former substance user and heroin current occupational status: unemployed Travel in the last 8 weeks: None
[2023-12-28 11:39] VITALS: BP 130/79; PULSE 110; RESP 20; O2SAT 96; BMI 27.0
== END | disposition home or self-care (01) ==
PROVIDERS: PCP Internal Medicine; Visit Provider Nurse Practitioner Family
DX: M50.10 Cervical disc disorder with radiculopathy, unspecified cervical region (principal); M47.22 Other spondylosis with radiculopathy, cervical region; M43.22 Fusion of spine, cervical region
CPT/HCPCS: 99212; G0463

== ENCOUNTER 2024-01-01 12:56 | Outpatient (CLI) | payer OTHER, SELFPAY ==
--- NOTE | 2024-01-01 13:02 | MR_ITS ---
FINAL REPORT CLINICAL HISTORY: neck pain COMPARISON: 09/01/2020 FINDINGS: Multi planar MR imaging was obtained of the cervical spine. There is abnormal decreased signal throughout the cervical discs. There is magnetic artifact which slightly limits overall image quality secondary to anterior fusion at the C5-6 and C6-7 levels. The vertebrae are of normal height. There is no malalignment. The cervical cord demonstrates normal signal and configuration. C2-C3: There is no evidence of significant disc bulge or protrusion. There is no significant facet hypertrophy. C3-C4: There is no evidence of significant disc bulge or protrusion. There is no significant facet hypertrophy. C4-C5: There is a moderate broad-based midline disc protrusion, with endplate hypertrophy eccentric to the right. There is moderate to severe right and mild left neural foraminal narrowing. These findings are more prominent than noted on the prior MRI. C5-C6: There is no evidence of significant disc bulge or protrusion. There is no significant facet hypertrophy. C6-C7: There is mild endplate hypertrophy eccentric to the right as well as mild to moderate right neural foraminal narrowing. C7-T1: There is no evidence of significant disc bulge or protrusion. There is no significant facet hypertrophy. IMPRESSION: Prior anterior fusion at the C5-6 and C6-7 levels produces magnetic artifact which somewhat limits overall image quality. Degenerative change primarily at the C4-5 and C6-7 levels as described. Reviewed, Interpreted and Dictated by Harman Marte MD Transcribed by Kimmy Viera Authenticated and [facility]
== END 2024-01-01 23:59 ==
LOC: RAD 12:57
PROVIDERS: PCP Internal Medicine; Visit Provider Internal Medicine
DX: M48.02 Spinal stenosis, cervical region (principal); M54.12 Radiculopathy, cervical region
CPT/HCPCS: 72141; 76376

== ENCOUNTER → 2024-01-10 11:16 | Outpatient (POV) | payer OTHER, SELFPAY ==
[2024-01-10 11:23] VITALS: BP 108/77; PULSE 77; RESP 20; BMI 26.2
--- NOTE | 2024-01-10 12:27 | A.OFFVIS_ITS ---
[facility] Pain Management SOAP Note Subjective:: Patient is a pleasant 38-year-old female who presents today for MRI follow-up. We are currently treating the patient for degenerative disc disease of cervical spine with cervical radiculopathy symptoms, status post cervical postlaminectomy syndrome, cervical spondylosis, chronic neck pain. Today she rates her pain a 7 out of 10. Patient denies any new trauma or injury. She states she continues to have chronic pain that does go into her bilateral upper extremities. Patient has had previous cervical surgery is trying to prevent having to have additional. She does state that the baclofen we sent in last is helping. Patient is currently managed with gabapentin and [place] from her PCP. Her Bebo has been reviewed and is appropriate. Review of Systems: General: No recent weight changes, no fever, no sleep disturbances Respiratory: No cough, no shortness of air, no recurring pulmonary infections Cardiovascular/peripheral vascular: No chest pain, no palpitations, no edema, no shortness of breath Gastrointestinal: No new onset incontinence, normal bowel movements reported Genitourinary: No new onset incontinence Musculoskeletal: Neck pain, bilateral arm pain Psychiatric: [Normal mood/affect] Neurological: [Denies weakness in extremities], [denies balance issues] Objective:: Physical Exam: General: Alert and oriented x3, no acute distress, pleasant and cooperative Lungs: Respirations even and unlabored, symmetrical chest expansion Eyes: PERRL Musculoskeletal: Flexion and extension of cervical [spine] somewhat guarded secondary to pain, positive Spurling's test Neurological: Speech clear, no gross sensory deficit Assessment:: Degenerative disc disease of cervical spine with cervical radiculopathy symptoms, cervical spondylosis, chronic neck pain, cervical postlaminectomy syndrome Plan:: Patient continues to experience significant pain in her neck with limited range of motion and a positive Spurling's test. I have discussed with the patient that she may benefit from a spinal cord stimulator trial in the future. Risk and benefits and educational handouts were given to the patient during today's visit. She would like to proceed forward with this plan of care. I will order the patient a psychological evaluation and if she is deemed an appropriate candidate we will proceed forward with a trial at a later date. Patient will return to clinic in 1 month following her psych eval for reevaluation of symptoms and plan of care. Patient has been instructed to contact the clinic with any concerns before the next appointment. Dr. Sharma has reviewed this note and agrees with this plan of care. This note was dictated using voice recognition software and make contain errors or omissions. [facility] Disclaimer: The information contained in this section may have been updated after the patient was seen, as this information can be updated by other users. Medical History Cervical neuropathy Cervical neuropathy EMG and nerve conduction studies does show an neuropathy. She has never had interventional pain procedures done we will send her to Dr. Sharma for that. Hopefully he can give her some relief and we can reduce her medications. The gabapentin and the hydrocodone are helping her and we will continue with those prescriptions for now. Cervical spondylosis Low back pain Patient is not really having any low back pain per se but she does have burning in the arches of the feet bilaterally. I am not sure what to make of this. Will review her chart and when she comes back in November consider wha t else to do here. Family History Other Unknown family medical history Social History Smoking Status: Current every day smoker tobacco type: cigarettes packs per day: 1 alcohol intake: never substance use type: former substance user and heroin current occupational status: other Travel in the last 8 weeks: None
== END | disposition home or self-care (01) ==
PROVIDERS: PCP Internal Medicine; Visit Provider Nurse Practitioner Family
DX: M50.10 Cervical disc disorder with radiculopathy, unspecified cervical region (principal); M47.22 Other spondylosis with radiculopathy, cervical region; M96.1 Postlaminectomy syndrome, not elsewhere classified; G89.29 Other chronic pain
CPT/HCPCS: 99212; G0463